=== PATIENT | female | born 1985 | race American Indian/Alaskan Native ===

== ENCOUNTER 2022-07-24 14:27 | Inpatient (IN) | payer MEDICAID ==
[2022-07-24] MEDS ORDERED: GENTAMICIN 0 MG in SODIUM CHLORIDE 0.9% 100 ML IV ONE (15:31)
[2022-07-24] MEDS ORDERED: BICITRA ORAL LIQD 30ML PO ONE (15:31)
[2022-07-24] MEDS ORDERED: METOCLOPRAMIDE 10 MG/2 ML INJ IV ONE (15:31)
[2022-07-24] MEDS ORDERED: FAMOTIDINE 20 MG/2 ML INJ IV ONE (15:31)
[2022-07-24] MEDS ORDERED: ONDANSETRON 4 MG/2 ML INJ ONE (15:33)
[2022-07-24] MEDS ORDERED: METHYLERGONOVINE MALEATE 0.2 MG/ML VIAL IM PRN (15:34)
[2022-07-24] MEDS ORDERED: OXYTOCIN 10 UNIT/1 ML INJ IM PRN (15:34)
[2022-07-24] MEDS ORDERED: LIDOCAINE (2%) 20 MG/1 ML VIAL 20 ML MDV INFILTRATI ONE (15:34)
[2022-07-24] MEDS ORDERED: ePHEDrine SULFATE 50 MG/1 ML INJ IV PRN (15:34)
[2022-07-24] MEDS ORDERED: ACETAMINOPHEN 325 MG TAB PO PRN ×2 (15:34→16:52)
[2022-07-24] MEDS ORDERED: MINERAL OIL 30 ML ORAL LIQD PO PRN (15:34)
[2022-07-24] MEDS ORDERED: BUTORPHANOL 2 MG/1 ML INJ IV PRN ×2 (15:34)
[2022-07-24] MEDS ORDERED: LOPERAMIDE 2 MG CAP PO PRN (15:34)
[2022-07-24] MEDS ORDERED: miSOPROStol 200 MCG TAB PR PRN (15:34)
[2022-07-24] MEDS ORDERED: TERBUTALINE 1 MG/1 ML INJ SUB-Q PRN (15:34)
[2022-07-24] MEDS ORDERED: KETOROLAC 30 MG/1 ML INJ ONE (15:39)
[2022-07-24] MEDS ORDERED: BUPIVACAINE/PF (0.5%) 5 MG/1 ML 30 ML VIAL INFILTRATI ONE (15:39)
--- NOTE | 2022-07-24 15:41 | Anesthesia Day of Surgery ---
Anesthesia Day of Surgery - Day of Surgery Patient Examined: Yes Patient H&P Reviewed: Yes Patient is NPO: Yes Beta Blockers: No Cardiac Clearance: No Pulmonary Clearance: No Enoc's Test: N/A
--- NOTE | 2022-07-24 15:41 | Anesthesia Consultation ---
Anesthesia Consult and Med Hx Date of service: 07/24/22 - Airway Anesthetic Teeth Evaluation: Good ROM Head & Neck: Adequate Mental/Hyoid Distance: Adequate Mallampati Class: Class III Intubation Access Assessment: Possibly Difficult - Pulmonary Exam CTA: Yes - Cardiac Exam Cardiac Exam: RRR - Pre-Operative Health Status ASA Pre-Surgery Classification: ASA2 Proposed Anesthetic Plan: Spinal Nerve Block: TAP - Pulmonary Hx Smoking: No Hx Asthma: Yes (As a child) Hx Sleep Apnea: No - Cardiovascular System Hx Hypertension: No Hx Heart Attack/AMI: No Hx Angina: No - Central Nervous System Hx Seizures: No Hx Psychiatric Problems: No - Gastrointestinal Hx Gastroesophageal Reflux Disease: No - Endocrine Hx Renal Disease: No Hx Liver Disease: No Hx Insulin Dependent Diabetes: No Hx Non-Insulin Dependent Diabetes: No Hx Hypothyroidism: No Hx Hyperthyroidism: No - Hematic Hx Anemia: Yes (borderline) Hx Sickle Cell Disease: No - Other Systems Hx Alcohol Use: No Hx Cancer: No Hx Obesity: Yes - Additional Comments Anesthesia Medical History Comments: previous c/s x1
--- NOTE | 2022-07-24 15:44 | History and Physical Report ---
History of Present Illness Date of examination: 07/24/22 Date of admission: Jul 24, 2022 Chief complaint: I'm having contractions and the baby is Breech History of present illness: 36 Y/O patient of [facility] presents in active labor with Breech presentation confirmed by bedside Ultasound by me. Her first was for Breech in 2004, followed by 2 vaginal births. Uneventful course noted. Past History Past Medical History: no pertinent history Past Surgical History: section Family/Genetic History: hypertension, cancer Social history: no significant social history - Obstetrical History Expected Date of Delivery: 07/25/22 Actual Gestation: 39 Week(s) 6 Day(s) : 4 Para: 3 Number of Living Children: 3 Medications and Allergies Allergies Allergy/AdvReac Type Severity Reaction Status Date / Time amoxicillin Allergy Rash Verified 07/24/22 15:37 erythromycin base Allergy Rash Verified 07/24/22 15:37 [From Pediazole] sulfisoxazole Allergy Rash Verified 07/24/22 15:37 [From Pediazole] Home Medications Medication Instructions Recorded Confirmed Last Taken Type Vit-Fe Fumar-FA [ 1 tab PO QDAY 07/18/22 07/24/22 07/24/22 History Vitamin] Active Meds: Active Medications Citric Acid/Sodium Citrate (Bicitra Oral Liqd 30ml) 30 ml PO ONCE ONE Stop: 07/24/22 15:32 Famotidine (Famotidine 20 Mg/2 Ml Inj) 20 mg IV ONCE ONE Stop: 07/24/22 15:32 Lactated Ringer's (Lactated Ringers) 1,000 mls @ 2,250 mls/hr IV PREOP JASBIR Stop: 07/25/22 16:12 Oxytocin/Sodium Chloride (Pitocin/Ns 30 Unit/500ml) 30 units in 500 mls @ 0 mls/hr IV TITR JASBIR; Protocol Clindamycin HCl (Cleocin 900 Mg/50 Ml) 900 mg in 50 mls @ 100 mls/hr IV PREOP NR; Protocol Metoclopramide HCl (Metoclopramide 10 Mg/2 Ml Inj) 10 mg IV ONCE ONE Stop: 07/24/22 15:32 Review of Systems All systems: negative - Vital Signs Vital signs: Vital Signs Pulse Pulse Ox 79 99 07/24/22 15:03 07/24/22 15:03 Temp Pulse Resp BP Pulse Ox 98.3 F 87 16 105/61 100 07/24/22 15:05 07/24/22 15:38 07/24/22 15:05 07/24/22 15:05 07/24/22 15:38 - Physical Exam Breasts: Positive: deferred Cardiovascular: Regular rate Lungs: Positive: Clear to auscultation Abdomen: Positive: soft Genitourinary (Female): Positive: normal external genitalia Vulva: both: normal Vagina: Positive: normal moisture Uterus: Positive: enlarged Adnexa: both: normal Deep Tendon Reflex Grade: Normal +2 - Obstetrical FHR: category 1 Uterine Contraction Monitor Mode: External Cervical Dilatation: 10 Cervical Effacement Percentage: 100 station: -3 Uterine Contraction Frequency (min): every 2 -3 min Uterine Contraction Pattern: Regular Uterine Contraction Intensity: Moderate Results All other labs normal. Assessment and Plan A: 39.6 weeks in active labor, Breech Presentation, Prior x1 P: Plan for repeat , Dr. Baird notified
[2022-07-24] MEDS ORDERED: LACTATED RINGERS 1,000 ML IV SCH (15:45)
[2022-07-24 15:59] LABS: Basophils % (Auto) 0.1 % (0.0-1.8); Eosinophils % (Auto) 0.8 % (0.0-4.3); Hematocrit 37.4 % (30.3-42.9); Hemoglobin 12.7 gm/dl (10.1-14.3); Lymphocytes # (Auto) 1.4 K/mm3 (1.2-5.4); Lymphocytes % (Auto) 24.5 % (13.4-35.0); Mean Corpuscular HGB Conc 34 % (30-34); Mean Corpuscular Volume 89 fl (79-97); Monocytes # (Auto) 0.5 K/mm3 (0.0-0.8); Platelet Count 211 K/mm3 (140-440); Red Blood Count 4.21 M/mm3 (3.65-5.03); Red Cell Distribution Width 14.4 % (13.2-15.2)
[2022-07-24] MEDS ORDERED: OXYTOCIN DRIP 30 UNITS/500 ML BAG IV SCH ×2 (16:00→17:00)
[2022-07-24] MEDS ORDERED: GENTAMICIN/NS 100 MG/100 ML 100 MG/100 ML BAG IV ONE (16:00)
[2022-07-24] MEDS ORDERED: ePHEDrine SULFATE 50 MG/1 ML INJ ONE (16:10)
--- NOTE | 2022-07-24 16:49 | Procedure Note ---
OB Delivery Note - Delivery Date of Delivery: 07/24/22 Surgeon: MALGORZATA COELHO Estimated blood loss: other (Qbl 921ml) - Section Preop diagnosis: repeat Postop diagnosis: same section procedure: section, repeat low transverse Disposition: PACU Complications: none - Infant A at 1 minute: 8 at 5 minutes: 9 Infant Gender: Female (Weight 7 pounds 10 ounces)
--- NOTE | 2022-07-24 16:51 | Operative Report ---
Operative Report Operative Report: Date of surgery: July 24, 2022 Preoperative diagnosis: at 39+6 weeks; previous delivery; anival breech presentation; spontaneous rupture membranes Postoperative diagnosis: Same as above Procedure: Repeat low transverse delivery Surgeon: Leora Baird M.D. Anesthesia: Regional Estimated blood loss: Q. BL 921 mL Urine output: 150 mL IV fluids: 1000 mL Findings: Liveborn female infant with Apgars of 8 and 9 weight 7 pounds 10 ounces Indications: 36-year-old -0-0-3 at 39+6 weeks who presents in active labor with advanced cervical dilatation of 10 cm in breech presentation. The patient has a history of a previous delivery. Procedure: The patient was taken to the operating room and given regional anesthesia without complication. She was prepped and draped in a normal sterile fashion. A Pfannenstiel skin incision was made down to layer the fascia which was nicked in the midline extended laterally with the Bovie cautery. The superior aspect of the rectus fascia was grasped with Shallowater clamps x2 and the rectus muscles off sharply. This was done in inferior fashion as well. The rectus muscle midline and peritoneum entered bluntly. An Anatoliy retractor was then inserted. A bladder blade was placed. The vesicouterine peritoneum was then entered sharply with Metzenbaum scissors. A bladder flap was created digitally. A low transverse uterine incision was then made and extended digitally. There was clear fluid upon entry into the uterine cavity. The infant's legs were delivered through the incision with fundal pressure. Pinard maneuver was performed in order to deliver the arms. The head was delivered with fundal pressure. The cord was clamped and cut x2 and infant was passed off to pediatrics. The placenta was then manually extracted. The uterus was then exteriorized and cleared of clots and debris. The uterine incision was then closed in a running locked fashion with 0 Vicryl additional imbricating stitch was applied for 2 layer closure. The posterior cul-de-sac was then copiously irrigated. The uterus was replaced back into the abdomen and pelvis were the gutters were then irrigated. The Anatoliy retractor was then removed. The peritoneum was then reapproximated with 3-0 Vicryl incorporating the rectus muscle. The fascia was then closed with 0 Vicryl in a running fashion. The skin was then reapproximated with 3-0 Monocryl on a Odin needle subcuticular fashion. Steri-Strips to place across the incision and a Crede procedures performed at the end of the surgery. A pressure dressing was applied to the incision. The surgery productive of a liveborn female infant with Apgars of 8 and 9 weight 7 pounds 10 ounces. The patient was taken to the recovery room in stable condition. All sponge laps and needle counts correct x2.
[2022-07-24] MEDS ORDERED: IBUPROFEN 600 MG TAB PO PRN (16:52)
[2022-07-24] MEDS ORDERED: KETOROLAC 30 MG/1 ML INJ IV PRN (16:52)
[2022-07-24] MEDS ORDERED: NALOXONE 0.4 MG/1 ML INJ IV PRN ×2 (16:52→17:06)
[2022-07-24] MEDS ORDERED: WITCH HAZEL/ GLYCERIN PAD TP PRN (16:52)
[2022-07-24] MEDS ORDERED: LANOLIN/ZINC/DIMETHICONE (LANSINOH) 7 GM TP PRN (16:52)
[2022-07-24] MEDS ORDERED: ONDANSETRON 4 MG/2 ML INJ IV PRN ×2 (16:52→17:06)
[2022-07-24] MEDS ORDERED: SIMETHICONE 80 MG CHEW TAB PO PRN (16:52)
[2022-07-24] MEDS ORDERED: diphenhydrAMINE 50 MG/ML VIAL IV PRN (17:06)
[2022-07-24] MEDS ORDERED: PROMETHAZINE 25 MG RECT SUPP PR PRN (17:06)
[2022-07-24] MEDS ORDERED: HYDROmorphone 1 MG/1 ML INJ IV PRN (17:06)
[2022-07-24] MEDS ORDERED: NalbUPHINE 10 MG/1 ML INJ IV PRN (17:06)
[2022-07-24] MEDS ORDERED: PROMETHAZINE 25 MG TAB PO PRN (17:06)
--- NOTE | 2022-07-24 17:06 | Progress Note ---
Spinal Anesthesia Block - Spinal Anesthesia Block Start Time: 16:00 Stop Time: 16:05 Performed by:: GERMAN DUTTON Procedure: Spinal anesthesia block is being performed for []. H&P, labs have been reviewed. Patient's questions and concerns have been answered. Informed consent has been performed. Timeout has was performed. Patient in sitting position on side of bed. Sterile prep and drape was performed. 3 mL 1% lidocaine skin wheal at L [3]-L [4]. Needle introducer advanced. 24-gauge spinal needle advanced, [+] CSF [-] blood. [Marcaine 10mg and Precedex 5mcg] Spinal dose was given. All needles removed. Patient tolerated procedure well.
[2022-07-25] MEDS: oxyCODONE /ACETAMINOPHEN 5-325MG TAB PO PRN ×5 (01:32→21:15)
[2022-07-25 04:58] LABS: Hematocrit 31.6 % (30.3-42.9); Hemoglobin 10.3 gm/dl (10.1-14.3)
--- NOTE | 2022-07-25 09:12 | Progress Note ---
Assessment and Plan A: POD 1 Dressing clean and dry Stable P:Continue PP care per unit protocol Abd binder Subjective - Subjective Date of service: 07/25/22 Principal diagnosis: contractions, repeat csection for breech presentation Patient reports: appetite normal, voiding normally, pain well controlled, ambulating normally [place]: doing well Objective - Vital Signs Latest vital signs: Vital Signs Temp Pulse Resp BP BP Pulse Ox Pulse Ox 07/25/22 07:43 98.2 F 77 18 100/51 96 07/25/22 05:00 98.2 F 67 20 109/64 99 07/25/22 02:30 99 07/25/22 01:32 18 98 07/24/22 23:52 98.2 F 68 20 97/57 100 07/24/22 22:27 98 07/24/22 21:57 18 98 07/24/22 19:58 98.2 F 79 20 95/60 100 07/24/22 19:30 98 07/24/22 18:30 97.4 F L 63 18 110/69 100 07/24/22 17:50 67 22 119/66 99 07/24/22 17:45 64 20 111/71 100 07/24/22 17:40 77 16 118/63 99 07/24/22 17:35 71 20 106/65 100 07/24/22 17:30 77 19 109/67 99 07/24/22 17:27 80 11 L 134/84 98 07/24/22 17:21 79 15 120/71 97 07/24/22 17:15 75 19 120/73 07/24/22 17:10 77 17 115/72 98 07/24/22 17:06 97.1 F L 72 24 119/70 99 07/24/22 15:48 77 98 07/24/22 15:43 79 98 07/24/22 15:42 90 91 07/24/22 15:38 87 100 07/24/22 15:33 73 100 07/24/22 15:28 83 98 07/24/22 15:23 79 99 07/24/22 15:18 77 98 07/24/22 15:13 78 99 07/24/22 15:08 78 99 07/24/22 15:05 98.3 F 82 16 105/61 105/61 99 07/24/22 15:03 79 99 Intake and Output 07/24/22 07/25/22 07/25/22 23:59 07:59 15:59 Intake Total 1800 120 Output Total 1600 1600 Balance 200 -1480 Intake: IV 1700 Oral 100 120 Output: Urine 1600 1600 Indwelling Catheter 500 Uretheral (Wagner) 500 1000 Void 600 Other: Total, Intake Amount 100 120 Total, Output Amount 500 600 # Voids Void 1 Estimated Blood Loss 971 - Exam Breasts: Present: normal Cardiovascular: Present: Regular rate Lungs: Present: Clear to auscultation, Normal air movement Abdomen: Present: normal appearance, soft Uterus: Present: firm, tenderness, fundal height below umbilicus Extremities: Present: normal Deep Tendon Reflex Grade: Normal +2 Incision: Present: dressed (clean and dry) - Labs Labs: Abnormal lab results 07/24/22 Range/Units 15:38 Butts % (Auto) 9.0 H (0.0-7.3) %
--- NOTE | 2022-07-25 10:19 | Post Anesthesia Evaluation ---
- Post Anesthesia Evaluation Patient Participated: Yes Airway Patent: Yes Stable Respiratory Function: Yes Nausea/Vomiting: No Temp > 96.8F: Yes Pain Manageable: Yes Adequeate Hydration: Yes Anesthesia Complications: No Block Receding Appropriately: Yes Patient on Ventilator: No
[2022-07-26] MEDS: oxyCODONE /ACETAMINOPHEN 5-325MG TAB PO PRN ×5 (01:13→21:54)
--- NOTE | 2022-07-26 08:44 | Progress Note ---
Assessment and Plan A: POD # 2 - stable P: Continue with plan of care Subjective - Subjective Date of service: 07/26/22 Principal diagnosis: POD #2 repeat csection for breech presentation Interval history: Feeling ok, just very tired, not getting much sleep Patient reports: appetite normal : doing well Objective - Vital Signs Latest vital signs: Vital Signs Temp Pulse Resp BP Pulse Ox Pulse Ox 07/26/22 08:16 98 07/26/22 05:20 98 07/26/22 03:20 98 07/26/22 01:13 98 07/26/22 00:16 97.9 F 80 20 99/50 95 07/25/22 23:20 98 07/25/22 22:15 98 07/25/22 20:25 98 07/25/22 16:40 97.6 F 69 18 104/54 99 07/25/22 12:00 98.0 F 66 18 106/67 100 07/25/22 09:00 99 Intake and Output 07/25/22 07/26/22 07/26/22 22:59 06:59 14:59 Intake Total 840 120 Balance 840 120 Intake: Oral 480 120 Intake, Free Water 360 Other: Total, Intake Amount 240 120 # Voids Void 1 1 - Exam Breasts: Present: deferred Cardiovascular: Present: Regular rate, Other Abdomen: Present: soft Vulva: both: normal Uterus: Present: fundal height below umbilicus Deep Tendon Reflex Grade: Normal +2
--- NOTE | 2022-07-26 19:02 | Discharge Summary ---
Providers - Providers Date of Admission: 07/24/22 15:34 Date of discharge: 07/26/22 Attending physician: MATILDE COLEMAN MD Primary care physician: MATILDE COLEMAN MD Hospitalization Reason for admission: section Delivery: Procedure: section Incision: dressed Discharge diagnosis: IUP at term delivered baby: female Hospital course: + bowel sounds, has not passed gas as of 1899, will give a suppository Condition at discharge: Good Disposition: 01 HOME / SELF CARE / HOMELESS Plan - Discharge Medications Prescriptions: Ibuprofen [Motrin] 800 mg PO Q8HR #30 tablet Acetaminophen/Codeine [Tylenol /Codeine # 3 tab] 1 tab PO Q4HR PRN #16 tablet PRN Reason: Pain - Provider Discharge Summary Activity: routine, no sex for 6 weeks, no strenuous exercise Additional instructions: [] Smoking cessation referral if applicable(refer to patient education folder for contact #) [] Refer to [facility]'s [facility] Booklet Call your doctor immediately for: * Fever > 100.5 * Heavy vaginal bleeding ( >1 pad per hour) * Severe persistent headache * Shortness of breath * Reddened, hot, painful area to leg or breast * Drainage or odor from incision. * Keep incision clean and dry at all times and follow doctor's instructions regarding bathing/showering - Follow up plan Follow up: MATILDE COLEMAN MD [Primary Care Provider] - 14 Days
[2022-07-26] MEDS ORDERED: MAGNESIUM HYDROXIDE (MOM) ORAL LIQD UDC PO PRN (19:10)
[2022-07-26] MEDS: MORPHINE 4 MG/1 ML INJ IV PRN (21:48)
[2022-07-27] MEDS: MORPHINE 4 MG/1 ML INJ IV PRN ×2 (01:43→06:37)
[2022-07-27] MEDS: oxyCODONE /ACETAMINOPHEN 5-325MG TAB PO PRN ×2 (11:23→19:43)
[2022-07-27 16:53] VITALS: BP 103/61
== END 2022-07-27 20:15 | disposition home or self-care (01) | DRG 765 ==
LOC: TRG 14:27 → APU 14:29 → TRG 15:43 → APU 16:15 → OB 18:16
PROVIDERS: ADMIT Obstetrics & Gynecology Gynecology; ATTEND Obstetrics & Gynecology Gynecology
PROC: 10D00Z1 Extraction of Products of Conception, Low, Open Approach (ICD-10-PCS; principal; 2022-07-24)
DX: O32.1XX0 Maternal care for breech presentation, not applicable or unspecified (principal); D62 Acute posthemorrhagic anemia; O34.211 Maternal care for low transverse scar from previous cesarean delivery; Z3A.39 39 weeks gestation of pregnancy; Z20.822 Contact with and (suspected) exposure to COVID-19; Z37.0 Single live birth; Z88.8 Allergy status to other drugs, medicaments and biological substances
CPT/HCPCS: 36415; 85014; 85018; 85025; 86850; 86900; 86901; G0378; J3490; J7121; J1885; J2270; J2405; U0003